=== PATIENT | male | born 1995 | race Caucasian/White ===

== ENCOUNTER → 2018-12-18 | Outpatient (CLI) | payer OTHER ==
--- NOTE | 2018-12-22 23:12 | SLE ---
[facility] [place] [address] POLYSOMNOGRAPHY STUDY Name: WIHT TEJADA Room #: REG [facility]#: [id number] Admission: 12/18/18 ������������������ Attend Phys: Alex Orta MD Discharge: ������������������ Date of : [birth year] Report #: [id number] THIS REPORT FOR: //name// CC: Alex Mccarthy MD DATE OF SERVICE: 12/19/2018 ATTENDING PHYSICIAN: Dr. Karthikeyan Mccarthy. The patient is a 23-year-old who weighs 307 pounds with a BMI of 44. The patient's [place] score was 13. The patient is on trazodone for insomnia. The patient underwent home sleep study performed by [facility]. Total recording time was 432 minutes. During the night study, the patient had 10 obstructive apneas, 6 central apneas, no mixed apneas and 12 hypopneas. The patient's apnea-hypopnea index was 3.9 per hour. Supine sleep was not recorded. Nocturnal oximetry study revealed an average oxygen saturation of 95% with a lowest of 81%. Only 0.9 minutes were spent at an oxygen saturation of less than 90%. Mean heart rate was 69 beats per minute with a maximum of 112 beats per minute. IMPRESSION: 1. No clinically significant sleep disordered breathing. The patient's apnea-hypopnea index for the entire night was 3.9 per hour. 2. No clinically significant nocturnal hypoxia. RECOMMENDATIONS: 1. The patient does not meet the criteria for CPAP initiation. 2. The patient has moderate subjective hypersomnia without any clinically significant sleep disordered breathing. If clinical suspicion for other disorders such as narcolepsy or idiopathic hypersomnia is high, then consider doing multiple sleep latency tests. 3. Weight loss is strongly advised. 4. Avoid SHOPPER depressants. 5. Cautioned regarding driving until the patient's hypersomnia has resolved with the above recommendations. ��������������������������������������������� <ELECTRONICALLY SIGNED> ���������������������������������������� By: Alex Orta MD ��������������������������������������������� 12/22/18 [id number] Alex Orta MD /nt
== END ==
LOC: SLEEPLAB 10:36
DX: G47.19 Other hypersomnia (principal); R06.83 Snoring; E66.01 Morbid (severe) obesity due to excess calories; Z68.41 Body mass index [BMI] 40.0-44.9, adult

== ENCOUNTER → 2019-07-05 | Outpatient (CLI) | payer BC, OTHER ==
--- NOTE | 2019-07-10 08:03 | SLE ---
[facility] [place] [address] POLYSOMNOGRAPHY STUDY Name: TERRELLWHIT Joe Room #: REG [facility]#: [id number] Admission: 07/05/19 Attend Phys: Alex Orta MD Discharge: Date of : [birth year] Report #: [id number] THIS REPORT FOR: //name// CC: Alex Mccarthy MD DATE OF SERVICE: 07/05/2019 SLEEP STUDY ATTENDING PHYSICIAN: Dr. Karthikeyan Mccarthy. The patient is 23 years old who weighs 316 pounds with a BMI of 45.3. The patient's [place] score was 8. The patient underwent diagnostic sleep study performed at [facility]. The patient had a previous sleep study in 2019 and there was no clinically significant sleep disordered breathing. The patient's AHI for the entire night was 3.9 per hour. During the night of the study, the patient spent 494 minutes in bed and slept for 425 minutes with a sleep efficiency of 86%. Sleep latency was 23 minutes with a REM latency of 89 minutes. Sleep architecture showed normal stage 1 and stage 2 sleep, increased slow wave and normal REM sleep. During the night study, the patient had 2 central apneas, no mixed or obstructive apneas and 2 hypopneas. The patient's apnea-hypopnea index was only 0.6 per hour with a REM index of 0.6 per hour and a supine index of 0.8 per hour. EKG monitoring revealed an average heart rate of 60 beats per minute. No sustained arrhythmias observed. No PLMS observed. Nocturnal oximetry study revealed no clinically significant desaturations. Average saturation was 95% with a lowest of 89%. Due to low AHI, the patient did not meet the split night criteria for CPAP initiation. IMPRESSION: 1. No clinically significant sleep disorder breathing. The patient's AHI for the entire night was 0.6 per hour. 2. No clinically significant nocturnal hypoxia. 3. No clinically significant periodic limb movements. [facility] [address] [place] [address] POLYSOMNOGRAPHY STUDY Name: WHIT TEJADA Room #: REG [facility]#: [id number] Admission: 07/05/19 Attend Phys: Alex Orta MD Discharge: Date of : [birth year] Report #: [id number] RECOMMENDATIONS: 1. The patient did not meet the split night criteria for CPAP initiation. 2. Weight loss is strongly advised. 3. Avoid SPECIMEN ACCESSIONER depressants. 4. Cautioned regarding driving until the patient's hypersomnia is resolved. 5. If clinical suspicion for other disorders such as Narcolepsy is high, consider MSLT. 6. Patients hypersomnia could be related to the use of ant-depressants. Clinical correlation is advised. <ELECTRONICALLY SIGNED> By: Alex Orta MD 07/10/19 0803 [id number] 10 Alex Orta MD /wanda
== END ==
LOC: SLEEPLAB 05-11 17:23
DX: G47.19 Other hypersomnia (principal); R53.83 Other fatigue; F41.9 Anxiety disorder, unspecified; R06.83 Snoring; E66.01 Morbid (severe) obesity due to excess calories; Z68.41 Body mass index [BMI] 40.0-44.9, adult

== ENCOUNTER → 2021-04-20 | Outpatient (CLI) | payer OTHER | LOC: ULTRA 13:38 | PROVIDERS: ATTEND Nurse Practitioner | DX: N50.82 Scrotal pain (principal); G93.0 Cerebral cysts; N43.3 Hydrocele, unspecified ==